=== PATIENT | male | born 1935 | race Caucasian/White ===

== ENCOUNTER 2017-09-14 02:55 | Emergency (ER) | payer OTHER ==
[2017-09-14] MEDS ORDERED: EPINEPHrine 1:10,000 (P-F SYR) 1 MG/10 ML DISP.SYRIN ONE (03:03)
[2017-09-14] MEDS ORDERED: SODIUM BICARBONATE 8.4% - 50 ML ONE (03:04)
--- NOTE | 2017-09-14 03:11 | PDOC ---
History of Present Illness - General Stated Complaint: CARDIAC ARREST Time Seen by Provider: 09/14/17 03:01 History Source: Patient Exam Limitations: No Limitations - History of Present Illness Initial Comments: 09/14/17 03:06 The patient is an 82M with a PMH of CVA with residual right-sided hemiparesis, hypertension, CAD status post CABG, a-fib, hypothyroidism who presents to the ER in cardiac arrest. The patient had an unknown downtime, up to 2 hours per EMS. Per EMS, the patient had been in asystole since their arrival. Past History - Past Medical History Allergies/Adverse Reactions: Allergies Allergy/AdvReac Type Severity Reaction Status Date / Time No Known Allergies Allergy Verified 07/13/17 13:25 Home Medications: Ambulatory Orders Aspirin [ASA -] 81 mg PO DAILY 07/13/17 Carvedilol [Coreg -] 3.125 mg PO BID 07/13/17 Finasteride [Proscar] 5 mg PO DAILY 07/13/17 Levothyroxine [Synthroid -] 75 mcg PO DAILY 07/13/17 Lipitor 40 mg PO HS 07/13/17 Rivaroxaban [Xarelto -] 20 mg PO DAILY 07/13/17 Spironolactone [Aldactone] 25 mg PO DAILY 07/13/17 Tamsulosin HCl [Flomax] 0.4 mg PO DAILY 07/13/17 Clonazepam [Klonopin] 1 mg PO HS PRN 07/14/17 Folic Acid 1 mg PO DAILY 07/14/17 Albuterol 0.083% Nebulizer Safia [Ventolin 0.083% Nebulizer Soln -] 1 amp NEB Q6H PRN amp 07/28/17 Aspirin [ASA -] 81 mg PO DAILY tab.chew 07/28/17 Atorvastatin Ca [Lipitor] 40 mg PO HS #30 tablet 07/28/17 Carvedilol [Coreg -] 3.125 mg PO BID #60 tablet 07/28/17 Finasteride [Proscar -] 5 mg PO DAILY #30 tablet 07/28/17 Furosemide [Lasix -] 40 mg PO DAILY #30 tablet 07/28/17 Insulin (Levemir) [Levemir Vial] 8 units SQ HS #7 ml 07/28/17 Levothyroxine [Synthroid -] 75 mcg PO DAILY@0700 #30 tablet 07/28/17 Nystatin Cream [Mycostatin Cream -] 1 applic TP BID #1 applic 07/28/17 Spironolactone [Aldactone -] 25 mg PO DAILY #30 tablet 07/28/17 CVA: Yes COPD: No Diabetes: Yes Disorders: Yes (BPH) HTN: Yes Psychiatric Problems: Yes - Suicide/Smoking/Psychosocial Hx Smoking History: Unknown if ever smoked Review of Systems - Review of Systems Able to Perform ROS?: No (Clinical condition) Is the patient limited Austrian proficient: No *Physical Exam - Vital Signs Last Vital Signs Temp Pulse Resp BP Pulse Ox 09/14/17 02:55 - Physical Exam General Appearance: Yes: Obese HEENT: positive: Other (Pupils nonreactive) Respiratory/Chest: positive: Other (Coarse breath sounds bilaterally) Cardiovascular: positive: Other (No heart sounds noted) Gastrointestinal/Abdominal: positive: Soft, Protuberent, Distended Integumentary: positive: Dry, Cold Neurologic: negative: Fully Oriented, Alert, Normal Mood/Affect, Motor Strength 5/5 Medical Decision Making - Medical Decision Making 09/14/17 03:11 The patient is an 82M who presented in cardiac arrest at 0251. The patient was called in as asystolic and was asystolic on EMS's arrival. He was intubated which was confirmed with coarse breath sounds when the patient came in. Blood tinged frothy sputum was noted in the tube. The patient was placed in our stretch and put on our monitors and had asystole on our monitors. A mihir was present doing compressions at an adequate rate and depth. At pulse check, no pulses were noted, asystole was noted on the monitor, and a bedside ultrasound showed cardiac stand-still. Time of was called at 0255. *DC/Admit/Observation/Transfer Diagnosis at time of Disposition: - Discharge Dispostion Disposition: - Referrals Referrals: Aba Paniagua MD [Primary Care Provider] - - Patient Instructions - Post Discharge Activity
[2017-09-14 03:19] VITALS: BP 00/00; BMI 44.3
--- NOTE | 2017-09-14 03:21 | PDOC ---
Attending Attestation - Resident Resident Name: Aleksandr Germain - ED Attending Attestation I have performed the following: I have examined & evaluated the patient, The case was reviewed & discussed with the resident, I agree w/resident's findings & plan, Exceptions are as noted - Physicial Exam PE: 09/14/17 03:27 HEENT: at/nc, no raccoon or lemus sign, pupils fixed and dilated, CVS no spontaneous heart sounds Lungs pt being bagged, no spontaneous BS ABD: obese EXT: Left bill IO line. Neuro: no spontaneous motor activity - Medical Decision Making 09/14/17 03:31 NO spontaneous VS, Lumify sono showed no cardiac motility. Pt pronounced by me at 2:55 am. Pt pcp will be notified, as well as family members 09/14/17 03:42 [place] case # [id number] 09/14/17 04:07 Pt Daughter Luciana notified and made aware of patient's expiring 09/14/17 04:25 Daughter Jossy Coffman came to ED and was informed of patient's expirign. <Giovanny Shannon - Last Filed: 09/14/17 04:25> - HPI HPI: 09/14/17 03:25 The patient is a 82 year old male with significant past medical history of diabetes, CVA with residual right-sided hemiparesis, hypertension, CAD status post CABG, a-fib, hypothyroidism, pleural effusion, arrives to the emergency department s/p cardiac arrest. The patient is a resident at [facility], and was brought in from the place of residence. As per the EMS, they arrived at the scene 2:12 am, the downtime of the patient is unknown, maybe 2 hours. The patient was given 3 epinephrine and 1 sodium bicarbonate en route. En route the EMS called the hospital states the patients been asystolic for 20 minutes. The EMS arrived at ED 2:51 am, the patient arrived with Roni chest compression and IO placed on the left leg. The lumify sonogram was done at 2:55 am, with no cardiac movement detected. The patient was pronounced at 2:55 am. - Medical Decision Making 09/14/17 03:45 Documentation prepared by Magaly Ariza, acting as certified medical dosimetrist for Giovanny Shannon DO. 09/14/17 06:17 Dr. Aba Paniagua was called ([phone]) at 3:42 am, a voicemail was left. Dr. Aba Paniagua was called ([phone]) at 5:15 am, a voicemail was left. Dr. Aba Paniagua was called ([phone]) at 6:01 am, a voicemail was left. <Magaly Ariza - Last Filed: 09/14/17 06:19>
== END 2017-09-14 05:20 | disposition expired ==
LOC: JER 02:55
DX: I46.9 Cardiac arrest, cause unspecified (principal); I25.810 Atherosclerosis of coronary artery bypass graft(s) without angina pectoris; I10 Essential (primary) hypertension; Z95.1 Presence of aortocoronary bypass graft; I48.91 Unspecified atrial fibrillation; Z79.01 Long term (current) use of anticoagulants; Z79.82 Long term (current) use of aspirin; E11.9 Type 2 diabetes mellitus without complications; Z79.4 Long term (current) use of insulin; E03.9 Hypothyroidism, unspecified; I69.851 Hemiplegia and hemiparesis following other cerebrovascular disease affecting right dominant side
CPT/HCPCS: 99281-25